=== PATIENT | male | born 1950 | race Caucasian/White ===

== ENCOUNTER 2016-12-07 09:51 | Observation (INO) | payer OTHER ==
[~2016-12-07] VITALS: Ht 172.7 cm; Wt 125.2 kg
[~2016-12-07 09:51] MED LIST: ANTIVERT25 MG PO; ASPIRIN E.C.81 M1 PO; BACTRIM,SEPT1 TABLET PO; CEFDINIR300 MG PO; CHRONULAC,CEPHU30 ML PO; CIPRO500 MG PO; CORTISPORIN-TC10 M1 LEFT EAR; FLEXERIL10 MG PO; FUROSEMIDE40 MG PO; GENERLAC10 GM/15 M PO; INDERAL20 MG PO; KEFLEX500 MG PO; LASIX40 MG PO; LASIX80 MG PO; NAPROSYN500 MG PO; NITROSTAT,NITR0.4 M1 SL; NORCO 5/3251 TABLET PO; SPIRONOLACTONE100 MG PO; SPIRONOLACTONE50 MG PO; TYLENOL WITH C1 EACH PO; ULTRAM50 MG PO; VALIUM2 MG PO; Vicodin,Lortab 5/500 PO
[2016-12-07 10:42] LABS: CHLORIDE 108 mEq/L (99-109); POTASSIUM 4.5 mEq/L (3.7-5.4); SODIUM 139 mEq/L (136-147)
[2016-12-07 10:43] LABS: HEMATOCRIT 29.1 % (38.0-50.0); MCH 32.7 PG (29.0-34.0); MEAN PLAT.VOLUME 10.9 uM^3 (9.0-12.4); PLATELET COUNT 152 K/uL (156-360); RBC DIS.WIDTH-CV 16.5 % (11.8-14.6); RED BLOOD COUNT 2.94 M/uL (4.00-5.50); WHITE BLOOD COUNT 7.3 K/uL (4.1-10.2)
[2016-12-07 10:44] LABS: GLUCOSE 120 mg/dL (70-99)
[2016-12-07 10:45] LABS: ANION GAP 10 MEQ/L (2-14)
[2016-12-07 10:48] LABS: GFR ESTIMATE (CALCULATED) 50 mL/min/
[2016-12-07 10:49] LABS: UREA NITROGEN (BUN) 23 mg/dL (9-23)
[2016-12-07 10:55] LABS: TROP-I INTERPRETATION NEGATIVE; TROPONIN-I 0.01 ng/mL (0.0-0.30)
[2016-12-07 13:25] LABS: TOTAL BILIRUBIN 3.9 mg/dL (0.0-1.0)
[2016-12-07 13:26] LABS: ALKALINE PHOSPHATASE 135 IU/L (3-129)
[2016-12-07 13:29] LABS: DIRECT BILIRUBIN 2.1 mg/dL (0.0-0.3)
[2016-12-07 16:38] VITALS: BP 128/57
[2016-12-07 17:48] LABS: TROP-I INTERPRETATION NEGATIVE; TROPONIN-I 0.03 ng/mL (0.0-0.30)
[2016-12-07 19:51] VITALS: BP 166/93
[2016-12-07 23:23] LABS: TROP-I INTERPRETATION NEGATIVE; TROPONIN-I 0.04 ng/mL (0.0-0.30)
[2016-12-07 23:35] VITALS: BP 149/66
[2016-12-08 04:00] VITALS: BP 145/65
[2016-12-08 06:23] LABS: IRON 164 MCG/DL (35-150)
[2016-12-08 08:05] VITALS: BP 148/70
[2016-12-08 08:09] LABS: FERRITIN 968 NG/ML (22-322)
[2016-12-08 08:17] LABS: ANION GAP 8 MEQ/L (2-14); CHLORIDE 108 MEQ/L (99-109); GFR ESTIMATE (CALCULATED) 50 mL/min/; GLUCOSE 98 mg/dL (70-99); POTASSIUM 4.1 MEQ/L (3.7-5.4); SODIUM 140 MEQ/L (136-147); UREA NITROGEN (BUN) 24 mg/dL (9-23)
[2016-12-08] MEDS ORDERED: LASIX40 MG PO (09:31)
[2016-12-08] MEDS ORDERED: PROTONIX40 MG PO ×2 (09:31→10:54)
[2016-12-08] MEDS ORDERED: LACTULOSE10 GM/151 PO (09:31)
[2016-12-08] MEDS ORDERED: ALDACTONE25 MG PO (09:32)
[2016-12-08] MEDS ORDERED: RESTORIL15 MG PO (09:33)
[2016-12-08] MEDS ORDERED: BENADRYL25 MG PO (09:33)
[2016-12-08] MEDS ORDERED: PRILOSEC20 MG PO (09:34)
[2016-12-08] MEDS ORDERED: THERAGRAN1 TABLET PO (10:55)
[2016-12-08] MEDS ORDERED: FOLIC ACID1 MG PO (10:55)
[2016-12-08] MEDS ORDERED: Thiamine,Vitamin B1 PO (10:56)
[2016-12-08 11:14] VITALS: BP 138/64
== END 2016-12-08 11:32 | disposition home or self-care (01) ==
LOC: EME 09:51 → 5WEST 11:38 → EDOF 11:38 → 5WEST 15:12
PROVIDERS: Nurse Practitioner Adult Health; Specialist
DX: R07.9 Chest pain, unspecified (principal); R06.02 Shortness of breath; K21.9 Gastro-esophageal reflux disease without esophagitis; D63.8 Anemia in other chronic diseases classified elsewhere; K70.30 Alcoholic cirrhosis of liver without ascites; D69.6 Thrombocytopenia, unspecified; E88.09 Other disorders of plasma-protein metabolism, not elsewhere classified; N17.9 Acute kidney failure, unspecified; N18.3 Chronic kidney disease, stage 3 (moderate); E66.01 Morbid (severe) obesity due to excess calories; Z68.41 Body mass index [BMI] 40.0-44.9, adult; Z86.19 Personal history of other infectious and parasitic diseases; Z87.898 Personal history of other specified conditions
CPT/HCPCS: 71020; 78582; 80048; 80076; 82728; 83540; 84466; 84484; 85027; 87493; 93005; 93306; 93970; 99281; 99285; A9540; A9567; G0378; J1644; J1940

== ENCOUNTER 2017-02-20 07:33 | Inpatient (IN) | payer OTHER ==
[~2017-02-20] VITALS: Ht 167.6 cm; Wt 119.3 kg
[2017-02-20] VITALS (10 sets, daily range): BP systolic 105–136; BP diastolic 55–68
[~2017-02-20 07:33] MED LIST changes: +ALDACTONE25 MG PO; +BENADRYL25 MG PO; +FOLIC ACID1 MG PO; +LACTULOSE10 GM/151 PO; +PRILOSEC20 MG PO; +PROTONIX40 MG PO; +RESTORIL15 MG PO; +THERAGRAN1 TABLET PO; +Thiamine,Vitamin B1 PO
[2017-02-20 08:02] LABS: BASOPHIL COUNT 0.1 K/uL (0-0.1); EOSINOPHIL (%) 0.8 % (0-5); EOSINOPHIL COUNT 0.1 K/uL (0-0.3); IMMATURE GRANULOCYTE (%) 1.9 % (0.0-0.7); IMMATURE GRANULOCYTE COUNT 0.2 K/uL; INSTRUMENT ABS NEUTROPHIL CT 8.5 K/uL; LYMPHOCYTE COUNT 0.9 K/uL (1.0-2.8); MCH 34.1 PG (29.0-34.0); MEAN PLAT.VOLUME 10.4 uM^3 (9.0-12.4); MONOCYTE COUNT 1.5 K/uL (0-0.8); NEUTROPHIL (%) 75.6 % (45-76); NEUTROPHIL COUNT 8.5 K/uL (1.8-6.4); PLATELET COUNT 151 K/uL (156-360); RBC DIS.WIDTH-CV 16.8 % (11.8-14.6); WHITE BLOOD COUNT 11.3 K/uL (4.1-10.2)
[2017-02-20 08:04] LABS: MCV 103.1 FL (86-99); RED BLOOD COUNT 2.23 M/uL (4.00-5.50)
[2017-02-20 08:41] LABS: ALKALINE PHOSPHATASE 95 IU/L (3-129); ANION GAP 10 MEQ/L (2-14); CHLORIDE 106 MEQ/L (99-109); GFR ESTIMATE (CALCULATED) 34 mL/min/; GLUCOSE 143 mg/dL (70-99); LIPASE 46 U/L (1.0-51.0); POTASSIUM 4.4 MEQ/L (3.7-5.4); SAMPLE HEMOLYSIS CHECK 0; SAMPLE ICTERIC CHECK 1; SAMPLE LIPEMIA CHECK 0; SODIUM 137 MEQ/L (136-147); TOTAL BILIRUBIN 4.4 MG/DL (0.0-1.0); UREA NITROGEN (BUN) 31 mg/dL (9-23)
[2017-02-20] MEDS ORDERED: LASIX40 MG PO (11:48)
[2017-02-20] MEDS ORDERED: ALDACTONE100 MG PO (11:48)
[2017-02-20] MEDS ORDERED: LACTULOSE10 GM/151 PO (11:49)
[2017-02-21] VITALS (19 sets, daily range): BP systolic 58–136; BP diastolic 24–58
[2017-02-21 07:01] LABS: INTER. NORMALIZED RATIO 2.9
[2017-02-21 09:32] LABS: ALKALINE PHOSPHATASE 114 IU/L (3-129); ANION GAP 21 MEQ/L (2-14); CHLORIDE 101 MEQ/L (99-109); GFR ESTIMATE (CALCULATED) 18 mL/min/; GLUCOSE 117 mg/dL (70-99); POTASSIUM 5.1 MEQ/L (3.7-5.4); SAMPLE HEMOLYSIS CHECK 0; SAMPLE ICTERIC CHECK 3; SAMPLE LIPEMIA CHECK 0; SODIUM 134 MEQ/L (136-147); TOTAL BILIRUBIN 10.3 MG/DL (0.0-1.0); UREA NITROGEN (BUN) 40 mg/dL (9-23)
[2017-02-21 11:20] LABS: HEMATOCRIT 25.4 % (38.0-50.0); MCH 34.9 PG (29.0-34.0); MCHC 32.7 G/DL (30.0-36.0); MCV 106.7 FL (86-99); MEAN PLAT.VOLUME 11.1 uM^3 (9.0-12.4); NRBC (%) 0.1 /100 WBC (0-0); PLATELET COUNT 138 K/uL (156-360); RBC DIS.WIDTH-CV 20.6 % (11.8-14.6); RBC DIS.WIDTH-SD 75.9 % (39-53); RED BLOOD COUNT 2.38 M/uL (4.00-5.50)
[2017-02-21 11:21] LABS: WHITE BLOOD COUNT 27.4 K/uL (4.1-10.2)
[2017-02-21 13:20] LABS: BASE EXCESS -18.2 mEq/L (-3 to +3); BICARBONATE 8.9 mEq/L (22-26); CARBOXY HGB 3.4 % (0-5); METHEMOGLOBIN 2.2 % (0-1.5); PCO2 25 mm Hg (35-45); PO2 49 mm Hg (80-100)
[2017-02-21 13:25] LABS: COMMENTS - BLOOD GASES A+C+; SITE RR
[2017-02-21 13:26] LABS: DEVICE RA; pH 7.16 (7.35-7.45)
[2017-02-21 15:47] LABS: METH RESISTANT S AUREUS PCR NEGATIVE (NEGATIVE)
[2017-02-21 15:48] LABS: PROBE CHECK PASS; SPECIMEN PROCESSING CONTROL PASS
[2017-02-21 17:30] LABS: TROP-I INTERPRETATION NEGATIVE; TROPONIN-I 0.22 ng/mL (0.0-0.30)
[2017-02-21 17:38] LABS: ABS NEUTROPHIL COUNT 20.1; ANISOCYTOSIS 2+; BAND NEUTROPHILS 5.2 % (0-8.0); BURR CELLS 3+; EOSINOPHIL ABS CT 0.1; EOSINOPHILS 0.4 % (0-5.0); HEMATOCRIT 19.5 % (38.0-50.0); INSTRUMENT ABS NEUTROPHIL CT 17.4 K/uL; LYMPHOCYTES 2.2 % (15.0-45.0); MACROCYTES 2+; MCH 36.4 PG (29.0-34.0); MCHC 32.3 G/DL (30.0-36.0); MEAN PLAT.VOLUME 12.7 uM^3 (9.0-12.4); METAMYELOCYTES 1.3 %; MYELOCYTES 0.4 %; PLATELET COUNT 134 K/uL (156-360); POIKILOCYTOSIS 3+; POLYCHROMASIA 1+; RBC DIS.WIDTH-CV 21.1 % (11.8-14.6); RBC DIS.WIDTH-SD 80.5 % (39-53); SCHISTOCYTES 1+; SEG.NEUTROPHILS 88.3 % (46.0-76.0); WHITE BLOOD COUNT 21.5 K/uL (4.1-10.2)
[2017-02-21 17:43] LABS: MCV 112.7 FL (86-99); RED BLOOD COUNT 1.73 M/uL (4.00-5.50)
[2017-02-21 17:44] LABS: ALKALINE PHOSPHATASE 86 IU/L (3-129); ANION GAP 28 MEQ/L (2-14); CHLORIDE 103 MEQ/L (99-109); GFR ESTIMATE (CALCULATED) 18 mL/min/; GLUCOSE 71 mg/dL (70-99); POTASSIUM 5.9 MEQ/L (3.7-5.4); SAMPLE HEMOLYSIS CHECK 2; SAMPLE ICTERIC CHECK 2; SAMPLE LIPEMIA CHECK 0; SODIUM 137 MEQ/L (136-147); TOTAL BILIRUBIN 8.8 MG/DL (0.0-1.0); UREA NITROGEN (BUN) 38 mg/dL (9-23)
== END 2017-02-21 21:48 | DRG 66 ==
LOC: EME → EDBD 07:33 → EDOF 10:44 → 4EAST 10:44 → EDOF 12:29 → 4EAST 12:52 → 4WEST 02-21 13:48
PROVIDERS: Emergency Medicine; Family Medicine Sports Medicine; Internal Medicine; Internal Medicine Pulmonary Disease
DX: I63.9 Cerebral infarction, unspecified (principal); I10 Essential (primary) hypertension; E78.5 Hyperlipidemia, unspecified; I50.9 Heart failure, unspecified
CPT/HCPCS: 36600; 71010; 74176; 74181; 80053; 81003; 82105 90; 82140; 82436; 82570; 82803; 83605; 83690; 84156; 84300; 84484; 85025; 85027; 85610; 85730; 86850; 86870; 86900; 86901; 86920; 87040; 87641; 93005; 99281; 99285; J0461; J2270; J2405; J3010; J7030; J7050; P9016; P9017; P9045; P9047